=== PATIENT | female | born 1940 | race Caucasian/White ===

== ENCOUNTER 2018-03-08 21:47 | Emergency (ER) | payer MEDICARE, OTHER ==
[~2018-03-08] VITALS: Ht 160 cm; Wt 103.0 kg
--- OUTSIDE RECORDS SUMMARY | 2018-03-08 21:51 | XMS REPORT | Summary of Care ---
Author Author [facility] Outpatient Imaging [facility] Outpatient Imaging [facility] Address Unknown Phone Unavailable Encounter HQ Encntr_alias(FIN) [id number] Date(s): 10/16/17 - 10/16/17 [facility] Outpatient Imaging [facility] [address] [facility] [address] [place], [place] [address]- [phone] Discharge Disposition: Home or Self Care Attending Physician: Patria Fernández MD Vital Signs No data available for this section Problem List Condition Effective Dates Status Health Status Informant Asthma(Confirmed) Resolved Back ache(Confirmed) Resolved Bronchitis(Confirmed Resolved )1 Shortness of breath Resolved on exertion(Confirmed) Hearing Resolved deficit(Confirmed)2 Skin Resolved cancer(Confirmed)3 Sleep Resolved apnea(Confirmed) 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 Alcohol Current, Type Beer. Frequency: 1-2 times per year. Smoking Status Never smoker; Ready to change: No; Concerns about tobacco use in household: No; Exposure to Tobacco Smoke None; Cigarette Smoking Last 365 Days No; Reg Smoking Cessation Counseling No entered on: 01/17/16 Assessment and Plan No data available for this section
--- OUTSIDE RECORDS SUMMARY | 2018-03-08 21:51 | XMS REPORT | Summary of Care ---
Author Author [facility] Outpatient Imaging [facility] Outpatient Imaging [facility] Address Unknown Phone Unavailable Encounter HQ Encntr_alias(FIN) [id number] Date(s): 01/05/16 - 01/05/16 [facility] Outpatient Imaging [facility] [address] [place], [place] [address]- [phone] Discharge Disposition: Home or Self Care Attending Physician: Patria Fernández MD Admitting Physician: Patria Fernández MD Vital Signs No data available for this section Problem List No data available for this section Allergies, Adverse Reactions, Alerts No data available for this section Medications No data available for this section Results No data available for this section Immunizations No data available for this section Procedures No data available for this section Social History No data available for this section Assessment and Plan No data available for this section
--- OUTSIDE RECORDS SUMMARY | 2018-03-08 21:51 | XMS REPORT | Summary of Care ---
Author Author [facility] Organization [facility] Address Unknown Phone Unavailable Encounter CLAUDIA He(BLAKE) [id number] Date(s): 01/18/16 - 01/18/16 [facility] [address] [place] [address]- Discharge Disposition: Home or Self Care Attending Physician: Patria Fernández MD Referring Physician: Patria Fernández MD Vital Signs 1 2 3 Most recent to oldest [Reference Range]: 160.02 cm (01/17/16 2:21 PM) Height 128/78 mmHg (01/18/16 9:45 AM) 133/77 mmHg (01/18/16 9:30 AM) 141/75 mmHg *HI* (01/18/16 9:15 AM) Blood Pressure [90-140/60-90 mmHg] 13 BRMIN *LOW* (01/18/16 9:45 AM) 15 BRMIN (01/18/16 9:30 AM) 13 BRMIN *LOW* (01/18/16 9:15 AM) Respiratory Rate [14-20 BRMIN] 86 bpm (01/18/16 6:15 AM) 83 bpm (01/17/16 2:54 PM) Peripheral Pulse Rate [60-100 bpm] 105.909 kg (01/17/16 2:21 PM) Weight 41.36 m2 (01/17/16 2:21 PM) Body Mass Index Problem List Condition Effective Dates Status Health Status Informant Asthma(Confirmed) Resolved Back ache(Confirmed) Resolved Bronchitis(Confirmed Resolved )1 Shortness of breath Resolved on exertion(Confirmed) Hearing Resolved deficit(Confirmed)2 Skin Resolved cancer(Confirmed)3 Sleep Resolved apnea(Confirmed) 02855 2BILATERAL HEARING AIDS 3NOSE 1979 Allergies, Adverse Reactions, Alerts Substance Reaction Severity Status NKDA Active Medications ANES acetaminophen 1,000 mg, 2 tab, Route: PO, Drug form: TAB, ONCE, Dosing Weight 105.909, kg, PRN Pain Score 1-3, Start date: 01/18/16 7:16:00 CDT, Duration: 1 doses or times, S top date: Limited # of times Notes: Max acetaminophen 4000 mg/day (4 gm/day). (Same as: Tylenol Extra Streng th) Start Date: 01/18/16 Stop Date: 01/18/16 Status: Discontinued ANES fentaNYL 25 microgram, 0.5 mL, Route: IVP, Drug form: INJ, Q5Min, Dosing Weight 105.909, kg, PRN Pain Score 4-6, Start date: 01/18/16 7:16:00 CDT, Duration: 4 doses or t imes, Stop date: Limited # of times Notes: (Same as: Sublimaze) Preservative free. Start Date: 01/18/16 Stop Date: 01/18/16 Status: Discontinued ANES flumazenil 0.2 mg, 2 mL, Route: IVP, Drug form: INJ, PRN, Dosing Weight 105.909, kg, PRN Be nzodiazepine Reversal, Initial dose, Start date: 01/18/16 7:16:00 CDT, Duration: 30 day, Stop date: 02/17/16 7:15:00 CDT Notes: (Same as: Romazicon) Start Date: 01/18/16 Stop Date: 01/18/16 Status: Discontinued ANES morphine Sulfate 2 mg, 1 mL, Route: IVP, Drug form: INJ, Q5Min, Dosing Weight 105.909, kg, PRN Pa in Score 4-6, Start date: 01/18/16 7:16:00 CDT, Duration: 5 doses or times, Stop date: Limited # of times Notes: (Same as:MORPhine Sulfate) Start Date: 01/18/16 Stop Date: 01/18/16 Status: Discontinued ANES naloxone 0.4 mg, 1 mL, Route: IVP, Drug form: INJ, Q2MIN, Dosing Weight 105.909, kg, PRN Narcotic Reversal, Start date: 01/18/16 7:16:00 CDT, Duration: 8 doses or times, Stop date: Limited # of times Notes: Same as Narcan Start Date: 01/18/16 Stop Date: 01/18/16 Status: Discontinued ANES ondansetron 4 mg, 2 mL, Route: IVP, Drug form: INJ, ONCE, Dosing Weight 105.909, kg, PRN Robert sea & Vomiting, Start date: 01/18/16 7:16:00 CDT Notes: (Same as: Singh) MEDICATION WASTE Product Size: 4 mgProduct Was donavan: ___ mg Start Date: 01/18/16 Stop Date: 01/18/16 Status: Discontinued calcium-vitamin D 250 mg-200 intl units oral tablet 1 tab, PO, BID, 0 Refill(s) Start Date: 01/17/16 Status: Ordered glucosamine 750 mg oral tablet 1,500 mg=2 tab, PO, BID, 0 Refill(s) Start Date: 01/17/16 Status: Ordered Lactated Ringers 1,000 mL 1,000 mL, Rate: 125 ml/hr, Infuse over: 8 hr, Route: IV, Dosing Weight 105.909 k g, Total Volume: 1,000, Start date: 01/18/16 7:16:00 CDT, Duration: 30 day, Stop date: 02/17/16 7:15:00 CDT Start Date: 01/18/16 Stop Date: 01/18/16 Status: Discontinued Lactated Ringers 1,000 mL 1,000 mL, Rate: 25 ml/hr, Infuse over: 40 hr, Route: IV, Dosing Weight 105.909 k g, Total Volume: 1,000, Start date: 01/18/16 7:16:00 CDT, Duration: 30 day, Stop date: 02/17/16 7:15:00 CDT Start Date: 01/18/16 Stop Date: 01/18/16 Status: Discontinued Mucinex Max Strength 1200 mg oral tablet, extended release 1,200 mg=1 tab, PO, Daily, 0 Refill(s) Start Date: 01/17/16 Status: Ordered omeprazole 40 mg oral delayed release capsule 40 mg=1 cap, PO, Daily, 0 Refill(s) Start Date: 01/17/16 Status: Ordered Symbicort 160/4.5 inhalation aerosol with adapter 2 puff, INHALATION, BID, 0 Refill(s) Start Date: 01/17/16 Status: Ordered Ultracet oral tablet 1 tab, PO, Q8H, PRN Pain, X 10 day, # 20 tab, 0 Refill(s) Start Date: 01/18/16 Stop Date: 01/28/16 Status: Ordered Ventolin HFA 90 mcg/inh inhalation aerosol with adapter 2 puff, INHALATION, PRN, 0 Refill(s) Start Date: 01/17/16 Status: Ordered Vitamin D3 2000 intl units oral tablet 2,000 IntlUnit=1 tab, PO, Daily, 0 Refill(s) Start Date: 01/17/16 Status: Ordered Results ELECTROLYTES Most recent to 1 oldest [Reference Range]: Sodium Lvl [135-145 145 mEq/L mEq/L] (01/17/16 2:24 PM) Potassium Lvl 4.5 mEq/L [3.5-5.1 mEq/L] (01/17/16 2:24 PM) Chloride Lvl [95-109 106 mEq/L mEq/L] (01/17/16 2:24 PM) CO2 [24-32 mEq/L] 31 mEq/L (01/17/16 2:24 PM) AGAP [10.0-20.0 12.5 mEq/L mEq/L] (01/17/16 2:24 PM) CHEM PANEL Most recent to 1 oldest [Reference Range]: Creatinine Lvl 1.10 mg/dL [0.50-1.40 mg/dL] (01/17/16 2:24 PM) eGFR 50 mL/min/1.73m2 1 *NA* (01/17/16 2:24 PM) BUN [7-22 mg/dL] 16 mg/dL (01/17/16 2:24 PM) Glucose Lvl [70-99 92 mg/dL mg/dL] (01/17/16 2:24 PM) Calcium Lvl 9.7 mg/dL [8.5-10.5 mg/dL] (01/17/16 2:24 PM) 1Result Comment: The eGFR is calculated using the CKD-EPI formula. In most young, healthy individuals the eGFR will be >90 mL/min/1.73m2. The eGFR declines with age. An eGFR of 60-89 may be normal in some populations, particularly the elderly, for whom the CKD-EPI formula has not been extensively validated. Use of the eGFR is not recommended in the following populations: Individuals with unstable creatinine concentrations, including patients and those with serious co-morbid conditions. Patients with extremes in muscle mass or diet. The data above are obtained from the National Kidney Disease Education Program ( NKDEP) which additionally recommends that when the eGFR is used in patients with extremes of body mass index for purposes of drug dosing, the eGFR should be mul tiplied by the estimated BMI. HEMATOLOGY Most recent to 1 oldest [Reference Range]: WBC [3.7-10.4 K/CMM] 6.6 K/CMM (01/17/16 2:24 PM) RBC [4.20-5.40 4.99 M/CMM M/CMM] (01/17/16 2:24 PM) Hgb [12.0-16.0 g/dL] 14.5 g/dL (01/17/16 2:24 PM) Hct [36.0-48.0 %] 44.3 % (01/17/16 2:24 PM) MCV [80.0-98.0 fL] 88.8 fL (01/17/16 2:24 PM) MCH [27.0-31.0 pg] 29.2 pg (01/17/16 2:24 PM) MCHC [32.0-36.0 32.9 g/dL g/dL] (01/17/16 2:24 PM) RDW [11.5-14.5 %] 13.5 % (01/17/16 2:24 PM) Platelet [133-450 260 K/CMM K/CMM] (01/17/16 2:24 PM) MPV [7.4-10.4 fL] 7.2 fL *LOW* (01/17/16 2:24 PM) Segs [45.0-75.0 %] 53.4 % (01/17/16 2:24 PM) Lymphocytes 37.8 % [20.0-40.0 %] (01/17/16 2:24 PM) Monocytes [2.0-12.0 7.3 % %] (01/17/16 2:24 PM) Eosinophils [0.0-4.0 1.0 % %] (01/17/16 2:24 PM) Basophils [0.0-1.0 0.5 % %] (01/17/16 2:24 PM) Segs-Bands # 3.5 K/CMM [1.5-8.1 K/CMM] (01/17/16 2:24 PM) Lymphocytes # 2.5 K/CMM [1.0-5.5 K/CMM] (01/17/16 2:24 PM) Monocytes # [0.0-0.8 0.5 K/CMM K/CMM] (01/17/16 2:24 PM) Eosinophils # 0.1 K/CMM [0.0-0.5 K/CMM] (01/17/16 2:24 PM) Basophils # [0.0-0.2 0.0 K/CMM K/CMM] (01/17/16 2:24 PM) TUMOR MARKERS Most recent to 1 oldest [Reference Range]: CEA [0.0-3.0 ng/mL] 11.2 ng/mL *HI* (01/17/16 2:24 PM) CA 27 29 [0-40 43 unit/mL unit/mL] *HI* (01/17/16 2:24 PM) Immunizations No data available for this section Procedures Procedure Date Related Diagnosis Body Site Breast biopsy and related procedures1 Procedure2 Tonsillectomy Tubal sterilization 85527 RIGHT 2EXCISION MOLE NOSE Social History Social History Type Response Substance Abuse Use: None. Alcohol Current, Type Beer. Frequency: 1-2 times per year. Smoking Status Never smoker; Ready to change: No; Concerns about tobacco use in household: No; Exposure to Tobacco Smoke None; Cigarette Smoking Last 365 Days No; Reg Smoking Cessation Counseling No Assessment and Plan Extracted from: Title: Clinical Document Author: Patria Fernández MD Date: 01/18/16 Attending: Patria Fernández MDPhone: Service: Surgery Code status: None Specified=FULL CODE Reason for Admission: BREAST CANCER Working DRG: None Documented Isolation: None Documented Consulting Physicians: (none on file) DATE OF PROCEDURE: 01-18-2016 PRE-OP DIAGNOSIS: Right Breast Cancer POST-OPERATIVE DIAGNOSIS: Same PROCEDURE PERFORMED: 1. Right Partial Mastectomy w/ pre-op needle loc 2. OncoPlastic Reconstruction with Tissue Rearrangement 3. Insertion BioZorb marker ANESTHESIA: General-LMA ; Dr. Oneill INDICATIONS FOR PROCEDURE: This is a 75 yo female with palpable mass and abnormal right breast MMG/US. 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 Clinically she is stage I (T1N0). She now presents for breast conserving surgery. PROCEDURE: The patient was taken to the operating room in stable condition and placed on the operating table in the supine position. After general anesthesia was adequate, the right breast and axilla were prepped and draped in sterile fashion. A curvilinear incision was made in the low axilla and dissection taken down through the axillary fascia. The neoprobe was used and a single sentinel node was identified. This circumferentially dissected with the harmonic scalpel and sent to pathology. There was no other visible or palpble abnormality within the axilla. The long thoracic and thoracodorsal nerve bundles were preserved. The wound was irrigated with sterile solution and injected with local anesthetic. Hemostatis was achieved with electrocautery. Wound edges were reapproximated with interrupted vicryl sutures followed by a monocryl subcuticular stitch. Attention then turned to the breast where a elliptical curvilinear incision was made in the 6 o'clock position nabove the palpable mass to include the closely adherent skin. Dissection was taken down through the subcutaneous tissues to the breast parenchyma. The tissue was divided and a circumferential piece of breast tissue was taken around the tumor. Sutures were placed to carroll for specimen orientation. Manual palpation felt that the inferior margin would be close so an additional inferior margin was taken. The wound was irrigated with sterile solution and injected with local anesthetic. Hemostasis was achieved with electrocautery. There was a fairly large defect caused by the removal of the breast tissue, which was measured to be greater than 30 sq. cm. with the tissue measuring 5.5 x 4 x 3 cm in size. It was elected to repair the surgical defect by using an oncoplastic tissue advancement procedure to achieve a breast reconstruction with local tissue flaps. The breast tissue under the skin and subcutaneous tissue was mobilize to create a superior flap. A similar flap was mobilized inferiorly. The BioZorb sizer instrument was used to properly size for the device. A 2 x 3 cm size BioZorb implant was oriented and placed into the cavity. This was secured in place with vicryl sutures. The tissue flaps were then sewn over the BioZorb and the skin checked for adequate mobilization without any traction and felt to be adequate. The wound edges were then reapproximated with interrupted vicryl sutures followed by a monocryl subcuticular stitch. Dermabond glue and sterile dressing was applied. The patient tolerated the procedure well, was awakened from general anesthesia, extubated and taken to the recovery room in stable condition.
--- OUTSIDE RECORDS SUMMARY | 2018-03-08 21:51 | XMS REPORT | Summary of Care ---
Author Author [facility] Outpatient Imaging [facility] Outpatient Imaging [facility] Address Unknown Phone Unavailable Encounter HQ Encntr_alias(FIN) [id number] Date(s): 10/15/16 - 10/15/16 [facility] Outpatient Imaging [facility] [address] [place], [place] [address]- [phone] Discharge Disposition: Home or Self Care Attending Physician: Patria Fernández MD Vital Signs No data available for this section Problem List Condition Effective Dates Status Health Status Informant Asthma(Confirmed) Resolved Back ache(Confirmed) Resolved Bronchitis(Confirmed Resolved )1 Shortness of breath Resolved on exertion(Confirmed) Hearing Resolved deficit(Confirmed)2 Skin Resolved cancer(Confirmed)3 Sleep Resolved apnea(Confirmed) 93864 2BILATERAL HEARING AIDS 3NOSE 1980 Allergies, Adverse Reactions, Alerts Substance Reaction Severity Status NKDA Active Medications No data available for this section Results No data available for this section Immunizations No data available for this section Procedures Procedure Date Related Diagnosis Body Site Breast biopsy and related procedures1 Procedure2 Tonsillectomy Tubal sterilization 02974 RIGHT 2EXCISION MOLE NOSE Social History Social History Type Response Substance Abuse Use: None. Alcohol Current, Type Beer. Frequency: 1-2 times per year. Smoking Status Never smoker; Ready to change: No; Concerns about tobacco use in household: No; Exposure to Tobacco Smoke None; Cigarette Smoking Last 365 Days No; Reg Smoking Cessation Counseling No Assessment and Plan No data available for this section
--- OUTSIDE RECORDS SUMMARY | 2018-03-08 21:51 | XMS REPORT | Continuity of Care Document ---
Author Author [facility] Interface Address Unknown Phone Unavailable Problems Problem Status Onset Date Classification Date Reported Comments Source BREAST CANCER Active 01/12/2016 [facility] R92.8 - OTH ABN AND INCONCLUSIVE FINDI Active 01/04/2016 [facility] Back ache Resolved Problem 10/19/2017 [facility] Bronchitis<sup>1</sup> Resolved Problem 10/19/20172011 [facility] Shortness of breath on exertion Resolved Problem 10/19/2017 [facility] Hearing deficit<sup>2</sup> Resolved Problem 10/19/2017 BILATERAL HEARING AIDS [facility] Skin cancer<sup>3</sup> Resolved Problem 10/19/2017 [facility] Sleep apnea Resolved Problem 10/19/2017 [facility] MALIGNANT NEOPLASM OF UNSP SITE OF RIGHT Active [facility] ABNORMAL MAMMOGRAM Active [facility] OTH ABN AND INCONCLUSIVE FINDINGS ON DX Active [facility] Medications Medication Details Route Status Patient Instructions Ordering Provider Order Date Source Acetaminophen 325 MG / tramadol hydrochloride 37.5 MG Oral Tablet [Ultracet] 1 tab, PO, Q8H, PRN Pain, X 10 day, # 20 tab, 0 Refill(s) Active 01/18/2016 [facility] Ondansetron 4 mg, 2 mL, Route: IVP, Drug form: INJ, ONCE, Dosing Weight 105.909, kg, PRN Nausea & Vomiting, Start date: 01/18/16 7:16:00 CDTNotes: (Same as: Singh) MEDICATION WASTE Product Size: 4 mg Product Wasted: ___ mg Inactive 01/18/2016 [facility] Naloxone 0.4 mg, 1 mL, Route: IVP, Drug form: INJ, Q2MIN, Dosing Weight 105.909, kg, PRN Narcotic Reversal, Start date: 01/18/16 7:16:00 CDT, Duration: 8 doses or times, Stop date: Limited # of timesNotes: Same as Narcan Inactive 01/18/2016 [facility] Flumazenil 0.2 mg, 2 mL, Route: IVP, Drug form: INJ, PRN, Dosing Weight 105.909, kg, PRN Benzodiazepine Reversal, Initial dose, Start date: 01/18/16 7:16:00 CDT, Duration: 30 day, Stop date: 02/17/16 7:15:00 CD TNotes: (Same as: Romazicon) Inactive 01/18/2016 [facility] Fentanyl 25 microgram, 0.5 mL, Route: IVP, Drug form: INJ, Q5Min, Dosing Weight 105.909, kg, PRN Pain Score 4-6, Start date: 01/18/16 7:16:00 CDT, Duration: 4 doses or times, Stop date: Limited # of timesNotes: (Same as: Sublimaze) Preservative free. Inactive 01/18/2016 [facility] Morphine 2 mg, 1 mL, Route: IVP, Drug form: INJ, Q5Min, Dosing Weight 105.909, kg, PRN Pain Score 4-6, Start date: 01/18/16 7:16:00 CDT, Duration: 5 doses or times, Stop date: Limited # of timesNotes: (Same a s:MORPhine Sulfate) Inactive 01/18/2016 [facility] Acetaminophen 1,000 mg, 2 tab, Route: PO, Drug form: TAB, ONCE, Dosing Weight 105.909, kg, PRN Pain Score 1-3, Start date: 01/18/16 7:16:00 CDT, Duration: 1 doses or times, Stop date: Limited # of timesNotes: Max acetaminophen 4000 mg/day (4 gm/day). (Same as: Tylenol Extra Strength) Inactive 01/18/2016 [facility] Calcium Chloride 0.0014 MEQ/ML / Potassium Chloride 0.004 MEQ/ML / Sodium Chloride 0.103 MEQ/ML / Sodium Lactate 0.028 MEQ/ML Injectable Solution 1,000 mL, Rate: 125 ml/hr, Infuse over: 8 hr, Route: IV, Dosing Weight 105.909 kg, Total Volume: 1,000, Start date: 01/18/16 7:16:00 CDT, Duration: 30 day, Stop date: 02/17/16 7:15:00 CDT Inactive 01/18/2016 [facility] 12 HR Guaifenesin 1200 MG Extended Release Tablet [Mucinex] 1,200 mg=1 tab, PO, Daily, 0 Refill(s) Active 01/17/2016 [facility] omeprazole 40 mg oral delayed release capsule 40 mg=1 cap, PO, Daily, 0 Refill(s) Active 01/17/2016 [facility] Ventolin HFA 90 mcg/inh inhalation aerosol with adapter 2 puff, INHALATION, PRN, 0 Refill(s) Active 01/17/2016 [facility] Symbicort 160/4.5 inhalation aerosol with adapter 2 puff, INHALATION, BID, 0 Refill(s) Active 01/17/2016 [facility] Vitamin D3 2000 intl units oral tablet 2,000 IntlUnit=1 tab, PO, Daily, 0 Refill(s) Active 01/17/2016 [facility] calcium-vitamin D 250 mg-200 intl units oral tablet 1 tab, PO, BID, 0 Refill(s) Active 01/17/2016 [facility] glucosamine 750 mg oral tablet 1,500 mg=2 tab, PO, BID, 0 Refill(s) Active 01/17/2016 [facility] Allergies, Adverse Reactions, Alerts Substance Category Reaction Severity Reaction type Status Date Reported Comments Source Immunizations Immunization Date Given Site Status Last Updated Comments Source Results Order Name Results Value Reference Range Date Interpretation Comments Source Breast Mammo Scrn MARIVEL w itz incl CAD MA Breast Mammo Scrn MARIVEL w itz incl CAD MA BILATERAL DIGITAL SCREENING MAMMOGRAM 3D/2D WITH CAD: 10/16/2017 CLINICAL: /Z12.31. Current study was evaluated with a Computer Aided Detection (CAD) system. COMPARISON:Comparison is made to exams dated: 10/15/2016 mammogram, 01/08/2016 mammogram - [facility], 11/16/2015 mammogram, and 10/19/2015 mammogram - [facility]. TECHNIQUE: Digital Breast Tomosynthesis was performed and utilized for Interpretation. Current study was also evaluated with a Computer Aided Detection (CAD) system. FINDINGS: The tissue of both breasts is almost entirely fat. There are post operative findings in the right breast. No significant masses, calcifications, or other findings are seen in either breast. There has been no significant interval change. IMPRESSION: BENIGN RECOMMENDATION:There is no mammographic evidence of malignancy. A 1 year screening mammogram is recommended.(10/17/2018) This exam was interpreted at [id number] at [facility]. Professional services are provided by the [facility]. Gideon Hawthorne M.D. ks/penrad:10/16/2017 14:07:39 Business Process Specialist(s): Vidya Mitchell [facility] letter sent: BI-RADS 1/2 Mammogram BI-RADS: 2 Benign 10/16/2017 - - Read by: Gideon Hawthorne MD Dictated Date/time: 10/16/17 14:07 Electronically Signed by: Gideon Hawthorne MD 10/16/17 14:07 FINAL REPORT [facility] Breast Mammo Diag MARIVEL w itz incl CAD MA Breast Mammo Diag MARIVEL w itz incl CAD MA - BREAST MAMMO DIAG MARIVEL W ITZ INCL CAD MA BILATERAL DIGITAL DIAGNOSTIC MAMMOGRAM 3D/2D WITH CAD: 10/15/2016 CLINICAL: N60.11 Diffuse Cystic Mastopathy Of Right Breast N60.12 Diffuse Cystic Mastopathy Of Left Breast/N60.11 Diffuse Cystic Mastopathy Of Right Breast. 2D digital mammographic images and 3D digital tomosynthesis images were obtained in the CC and MLO projections. Current study was evaluated with a Computer Aided Detection (CAD) system. Comparison is made to exams dated: 01/08/2016 mammogram - [facility], 11/16/2015 mammogram, 10/19/2015 mammogram, 06/18/2012 mammogram and 08/31/2009 mammogram - [facility]. There are scattered fibroglandular densities in both breasts. Changes from breast conservation therapy are identified in the right breast without mammographic evidence of tumor recurrence. There are post-surgical changes in the left breast. The pain is intermittent in nature for over 6 months. No significant masses, calcifications, or other findings are seen in either breast. IMPRESSION: BENIGN There is no abnormality seen in the right breast to correspond with the diffuse pain in the lower outer quadrant, however clinical correlation and clinical followup are recommended. There is no mammographic evidence of malignancy. A 1 year screening mammogram is recommended. Professional services are provided by the [facility] of Diagnostic Imaging. Dany Perez M.D., jp/jen:10/15/2016 13:16:51 Business Process Specialist: Ling MICHELLE (R)), [facility] This exam was dictated and interpreted by [id number] at [facility] Breast [place]. letter sent: Bilateral Benign Mammogram BI-RADS: 2 Benign 10/15/2016 - - Read by: Dany Perez MD Dictated Date/time: 10/15/16 13:16 Electronically Signed by: Dany Perez MD 10/15/16 13:16 FINAL REPORT [facility] CHEM PANEL eGFR 50 mL/min/1.73m2 01/17/2016 Result Comment: The eGFR is calculated using the [...] from the National Kidney Disease Education Program (NKDEP) which additionally recommends that when the eGFR is used in patients with extremes of body mass index for purposes of drug dosing, the eGFR should be multiplied by the estimated BMI. [facility] CHEM PANEL Glucose Lvl 92 mg/dL 70 - 99 01/17/2016 [facility] CHEM PANEL BUN 16 mg/dL 7 - 22 01/17/2016 [facility] CHEM PANEL Creatinine Lvl 1.10 mg/dL 0.50 - 1.40 01/17/2016 [facility] CHEM PANEL Potassium Lvl 4.5 meq/L 3.5 - 5.1 01/17/2016 [facility] CHEM PANEL Chloride Lvl 106 meq/L 95 - 109 01/17/2016 [facility] CHEM PANEL Sodium Lvl 145 meq/L 135 - 145 01/17/2016 [facility] CHEM PANEL CO2 31 meq/L 24 - 32 01/17/2016 [facility] CHEM PANEL Calcium Lvl 9.7 mg/dL 8.5 - 10.5 01/17/2016 [facility] CHEM PANEL AGAP 12.5 meq/L 10.0 - 20.0 01/17/2016 [facility] Monocytes 7.3 % 2.0 - 12.0 01/17/2016 [facility] HEMATOLOGY Lymphocytes 37.8 % 20.0 - 40.0 01/17/2016 [facility] HEMATOLOGY Segs 53.4 % 45.0 - 75.0 01/17/2016 [facility] Lymphocytes # 2.5 K/CMM 1.0 - 5.5 01/17/2016 [facility] HEMATOLOGY Basophils # 0.0 K/CMM 0.0 - 0.2 01/17/2016 [facility] HEMATOLOGY Eosinophils # 0.1 K/CMM 0.0 - 0.5 01/17/2016 [facility] Basophils 0.5 % 0.0 - 1.0 01/17/2016 [facility] Eosinophils 1.0 % 0.0 - 4.0 01/17/2016 [facility] Monocytes # 0.5 K/CMM 0.0 - 0.8 01/17/2016 [facility] Segs-Bands # 3.5 K/CMM 1.5 - 8.1 01/17/2016 [facility] Hct 44.3 % 36.0 - 48.0 01/17/2016 [facility] WBC 6.6 K/CMM 3.7 - 10.4 01/17/2016 [facility] RBC 4.99 M/CMM 4.20 - 5.40 01/17/2016 [facility] Hgb 14.5 g/dL 12.0 - 16.0 01/17/2016 [facility] MCH 29.2 pg 27.0 - 31.0 01/17/2016 [facility] MCV 88.8 fL 80.0 - 98.0 01/17/2016 [facility] MCHC 32.9 g/dL 32.0 - 36.0 01/17/2016 [facility] Platelet 260 K/CMM 133 - 450 01/17/2016 [facility] MPV 7.2 fL 7.4 - 10.4 01/17/2016 [facility] RDW 13.5 % 11.5 - 14.5 01/17/2016 [facility] TUMOR MARKERS CEA 11.2 ng/mL 0.0 - 3.0 01/17/2016 [facility] TUMOR MARKERS CA 27 29 43 unit/mL 0 - 40 01/17/2016 [facility] Chest 2 views DX Chest 2 views DX Chest 2 views DX 01/17/2016 2:22 PM CDT Ordering Physician: Patria Fernández MD CLINICAL HISTORY: Malignant neoplasm of unspecified ssite of right female breast; TECHNIQUE: PA and lateral upright views of the chest were obtained. COMPARISON: December 2006 FINDINGS: Lungs are hyperinflated, but clear. No pleural effusion or pneumothorax is present. Cardiomediastinal silhouette is normal. Bones are normal. IMPRESSION: No acute abnormality of the chest. Mild pulmonary emphysematous changes. SL: [id number] 01/17/2016 - - Read by: Christiano Torres MD Dictated Date/time: 01/17/16 17:23 Electronically Signed by: Christiano Torres MD 01/17/16 17:24 FINAL REPORT [facility] Sentinal Node injection NM Sentinal Node injection NM Patient Name: CINTIA HUMMEL : 1940; Age: 75 years y/o Female MR: [id number] Study: Right Breast Sentinal Node injection NM 01/17/2016 2:29 PM CDT Ordering Physician: Patria Fernández MD Clinical Indication: Malignant neoplasm of right female breast; Comparison: 01/08/2016 right breast ultrasound guided biopsy Utilizing sterile technique, 3 mCi of technetium 99m filtered sulfur colloid was injected into the outer lower quadrant of the right breast in 4 divided doses. SL: [id number] 01/17/2016 - - Read by: Yves Huerta MD Dictated Date/time: 01/17/16 17:26 Electronically Signed by: Yves Huerta MD 01/17/16 17:27 FINAL REPORT [facility] Breast BX Uni w Clip Primary Side US Breast BX Uni w Clip Primary Side US - BREAST BX UNI W CLIP PRIMARY SIDE US/R ULTRASOUND GUIDED BIOPSY RIGHT BREAST WITH MARKING DEVICE INSERTED AND POST DIGITAL MAMMOGRAPHIC IMAGING- POST-PROCEDURE IMAGING FOR MARKER PLACEMENT: 01/08/2016 CLINICAL: R92.8 Abnormal Mammogram Right Breast. PATIENT CONSENT: I discussed the risks, benefits and alternatives for the procedure with the patient. Patient acknowledged understanding and informed written consent was obtained. A time out was performed to confirm patient identification and the location of the lesion. Correlation is made to exams dated: 01/08/2016 ultrasound, 01/08/2016 mammogram - [facility], 11/16/2015 ultrasound, 11/16/2015 mammogram, 10/19/2015 mammogram and 06/18/2012 mammogram - [facility]. An ultrasound guided biopsy using real-time ultrasound was performed for the concerning 1.6 cm x 1.4 cm x 1.5 cm mass located in the right breast at 7 o'clock anterior depth 4 cm from the nipple. This was described on the previous ultrasound report. The skin was prepped in the usual manner. Local anesthetic was administered to the access site. A skin greta was made in the breast. The abnormality was approached from the lateral aspect. A 16 gauge biopsy needle was placed adjacent to the abnormality under ultrasound guidance. Once the needle was documented to be in the correct location, four specimens were obtained using a Astech biopsy device. A clip was inserted into the biopsy cavity. A sterile dressing was applied to the access site. Post procedure digital mammographic imaging demonstrates the clip at the targeted area. The specimens were sent to the laboratory for pathological analysis. IMPRESSION: ULTRASOUND GUIDED BIOPSY MALIGNANT Ultrasound guided biopsy of the 1.6 cm x 1.4 cm x 1.5 cm mass in the right breast at 7 o'clock anterior depth 4 cm from the nipple was successful with no apparent post procedure complications. Pathology indicates malignant invasive ductal carcinoma (ID). Pathology results are concordant with imaging findings. A surgical consult and a chemo oncology consultation are recommended. Beverly Washington M.D., rn,ms/penzohaib:01/10/2016 13:06:38 Business Process Specialist: Ava Ramachandran, [facility] This exam was dictated and interpreted by [address] [place] [address]. letter sent: Surgical Consult post Biopsy 01/08/2016 - - Read by: Beverly Luis MD Dictated Date/time: 01/10/16 13:06 Electronically Signed by: Beverly Luis MD 01/10/16 13:06 FINAL REPORT [facility] Breast Complete Uni US Breast Complete Uni US - BREAST COMPLETE UNI US/R ULTRASOUND OF RIGHT BREAST: 01/08/2016 CLINICAL: R92.8 Abnormal Mammogram. Comparison is made to exams dated: 11/16/2015 mammogram, 10/19/2015 mammogram, 06/18/2012 mammogram, 08/31/2009 mammogram - [facility] and 01/08/2016 mammogram - [facility]. Real-time ultrasound of all four quadrants and retroareolar region of the right breast including the right axillary, infraclavicular, and internal mammary fantasma basins was performed by the technologist and Dr. Luis. There is a 1.6 cm x 1.4 cm x 1.5 cm irregular mass in the right breast at 7 o'clock anterior depth 4 cm from the nipple. This irregular mass is of mixed echogenicity with areas of shadowing corresponding to areas of mammographic calcification. Color flow imaging demonstrates that there is vascularity present. There is no suspicious adenopathy in the right regional fantasma basins. IMPRESSION: HIGHLY SUGGESTIVE OF MALIGNANCY - FOLLOW-UP RECOMMENDED 1. The 1.6 cm 7:00 right breast mass containing calcifications resembles carcinoma and is highly suggestive of malignancy. An ultrasound guided biopsy is recommended for histopathologic confirmation. 2. No suspicious adenopathy in the right regional fantasma basins. Ultrasound-guided biopsy is to immediately follow; please see the accompanying report for further details. Beverly Luis M.D. rn/:01/08/2016 14:35:19 Business Process Specialist: Ava Ramachandran, [facility] This exam was dictated and interpreted by [address] [place] [address]. letter sent: Biopsy Ultrasound BI-RADS: 5 Highly suggestive of malignancy 01/08/2016 - - Read by: Beverly Luis MD Dictated Date/time: 01/08/16 14:35 Electronically Signed by: Beverly Luis MD 01/08/16 14:35 FINAL REPORT [facility] DX Uni MA Digital Mammo DX Uni MA - DIGITAL MAMMO DX UNI MA/R UNILATERAL RIGHT DIGITAL DIAGNOSTIC MAMMOGRAM: 01/08/2016 CLINICAL: R92.8 Other Abnormal And Inconclusive Findings On Diagnostic Imaging Of Breast. Comparison is made to exams dated: 11/16/2015 mammogram, 10/19/2015 mammogram, 06/18/2012 mammogram, 08/31/2009 mammogram - [facility] and 01/02/2007 mammogram - [facility]. The tissue of the right breast is almost entirely fat. There is a 1.9 cm irregular high density mass with pleomorphic calcifications in the right breast at 7 o'clock anterior depth 4 cm from the nipple. No other significant masses or calcifications are seen in the breast. IMPRESSION: INCOMPLETE: NEEDS ADDITIONAL IMAGING EVALUATION The 1.9 cm mass in the right breast is indeterminate. An ultrasound including fantasma basin evaluation is recommended and is to immediately follow; please see the accompanying report for further details. Beverly Luis M.D. rn/:01/08/2016 13:23:41 Business Process Specialist: Tierra Lorenz, [facility] This exam was dictated and interpreted by [address] [place] [address]. Mammogram BI-RADS: 0 Indeterminate 01/08/2016 - - Read by: Beverly Luis MD Dictated Date/time: 01/08/16 13:23 Electronically Signed by: Beverly Luis MD 01/08/16 13:23 FINAL REPORT [facility] Vital Signs Vital Sign Value Date Comments Source Respitory Rate 13 01/18/2016 [facility] Systolic (mm Hg) 128 01/18/2016 [facility] Diastolic (mm Hg) 78 01/18/2016 [facility] Respitory Rate 15 01/18/2016 [facility] Systolic (mm Hg) 133 01/18/2016 [facility] Diastolic (mm Hg) 77 01/18/2016 [facility] Systolic (mm Hg) 141 01/18/2016 [facility] Diastolic (mm Hg) 75 01/18/2016 [facility] Respitory Rate 13 01/18/2016 [facility] Heart Rate 86 01/18/2016 [facility] Heart Rate 83 01/17/2016 [facility] BMI Calculated 41.36 01/17/2016 [facility] Weight 105.909 01/17/2016 [facility] Height 160.02 cm 01/17/2016 [facility] Encounters Location Location Details Encounter Type Encounter Number Reason For Visit Attending Provider ADM Date DC Date Status Source [facility] Outpatient Imaging [facility] Outpatient [id number] Patria Pradeep 01/05/2016 01/06/2016 [facility] Outpatient Imaging [facility] Outpatient [id number] Patria Pradeep 01/08/2016 01/09/2016 [facility] [id number] Patria Pradeep 01/18/2016 01/18/2016 [facility] Outpatient Imaging [facility] Outpatient [id number] Patria Pradeep 10/15/2016 10/16/2016 OPID [facility] Outpatient [id number] Patria Fernández [facility]/16[facility]2017 [facility] Procedures Procedure Code Date Perfomer Comments Source Breast biopsy and related procedures<sup>1</sup> [id number] 1980 RIGHT [facility] Procedure<sup>2</sup> [id number] EXCISION MOLE NOSE [facility] Tonsillectomy [id number] [facility] Tubal sterilization [id number] [facility] Breast biopsy and related procedures<sup>1</sup> [id number] 1979 RIGHT [facility] Procedure<sup>2</sup> [id number] EXCISION MOLE NOSE [facility] Tonsillectomy [id number] [facility] Tubal sterilization [id number] [facility]
--- OUTSIDE RECORDS SUMMARY | 2018-03-08 21:51 | XMS REPORT | Summary of Care ---
Author Author [facility] Outpatient Imaging [facility] Outpatient Imaging [facility] Address Unknown Phone Unavailable Encounter HQ Encntr_alias(FIN) [id number] Date(s): 01/08/16 - 01/08/16 [facility] Outpatient Imaging [facility] [address] [place], [place] [address]- [phone] Discharge Disposition: Home or Self Care Attending [...]
[2018-03-08] MEDS ORDERED: BROMFED DM COU118 ML PO (22:23)
[2018-03-08] MEDS ORDERED: XYZAL5 MG PO (22:23)
[2018-03-08] MEDS ORDERED: PROAIR HFA INH8.5 GM INH (22:32)
== END 2018-03-08 23:00 | disposition home or self-care (01) ==
LOC: FSED 21:47
DX: R50.9 Fever, unspecified (principal); R05 Cough; B34.9 Viral infection, unspecified
CPT/HCPCS: 99283

== ENCOUNTER 2018-08-05 19:36 | Emergency (ER) | payer OTHER, MEDICARE ==
[~2018-08-05] VITALS: Ht 162.6 cm; Wt 102.1 kg
[~2018-08-05 19:36] MED LIST: BROMFED DM COU118 ML PO; PROAIR HFA INH8.5 GM INH; XYZAL5 MG PO
--- OUTSIDE RECORDS SUMMARY | 2018-08-05 19:39 | XMS REPORT | Clinical Summary ---
Author Author [facility] Organization [facility] Address Unknown Phone Unavailable Care Team Providers Care Global Commodity Manager Name Role Phone Felix Valdez MD PCP Allergies No Known Allergies Medications End Date Status Medication Sig Dispensed Refills Start Date Active VENTOLIN HFA 90 INL 2 PFS PO 0 mcg/actuation inhaler Q 4 H PRF 8 WHZ Active anastrozole (ARIMIDEX) 1 0 mg chemo tablet 8 Active brompheniramine-pseudoeph TK 10 ML PO Q 0 -DM 2-30-10 mg/5 mL syrup 4 H PRN COU 8 Active FLUZONE HIGH-DOSE ADM 0.5ML IM 0 2018-, PF, 180 mcg/0.5 UTD 8 mL syringe IM injection Active levocetirizine (XYZAL) 5 TK 1 T PO QD 0 MG tablet 8 Active meloxicam (MOBIC) 7.5 mg 0 tablet 8 Active PREVNAR 13, PF, 0.5 mL ADM 0.5ML IM 0 vaccine UTD 8 Active traMADol (ULTRAM) 50 mg 0 tablet 8 Active SHINGRIX, PF, 50 mcg/0.5 ADM 0.5ML IM 0 mL suspension for UTD 8 reconstitution IM injection Active Problems Problem Noted Date 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 Wrist tendonitis after 08/04/2017 Results * Hand/Upper Extremity Injection/Arthrocentesis (03/17/2018 10:30 AM [employer] WORK[employer]) Narrative Performed At Gary Triana MD 03/17/2018 11:41 AM Hand/Upper Extremity Injection/Arthrocentesis Date/Time: 03/17/2018 11:21 AM Consent given by: patient Supporting Documentation Indications: pain Procedure Details Condition: de Quervain's tenosynovitis Site: R extensor compartment 1 Right side: Needle size: 25 G Approach: lateral Patient tolerance: patient tolerated the procedure well with no immediate complications Right Extensor Compartment 1 Medications administered: 1 mL lidocaine 10 mg/mL (1 %); 6 mg betamethasone acetate & sodium phosphate 6 mg/mL after 08/04/2017 Insurance Payer Benefit Subscriber ID Type Phone Address Plan / Group AETNA AETNA xxxxxxxx HMO HMO,POS,EP O, MC/EC Advance Directives Patient has advance care planning documents on file. For more information, aki e contact: Cristofer Schwarz [id number] [place] [address]
[2018-08-05] MEDS ORDERED: ALBUTEROL/IPRATROPIUM 3 ML NEB NEB ONE (20:15)
[2018-08-05] MEDS ORDERED: PREDNISONE 20 MG TAB PO ONE (20:15)
[2018-08-05] MEDS ORDERED: PROAIR HFA INH8.5 GM INH (21:23)
[2018-08-05] MEDS ORDERED: DOXYCYCLINE HY100 MG PO (21:25)
[2018-08-05] MEDS ORDERED: PREDNISONE20 MG PO (21:26)
[2018-08-05] MEDS ORDERED: CHERATUSSIN AC118 ML PO (21:28)
[2018-08-05] MEDS ORDERED: DOXYCYCLINE MO100 MG PO (21:33)
== END 2018-08-05 22:00 | disposition home or self-care (01) ==
LOC: FSED 19:36
DX: J45.31 Mild persistent asthma with (acute) exacerbation (principal); J20.9 Acute bronchitis, unspecified; K21.9 Gastro-esophageal reflux disease without esophagitis
CPT/HCPCS: 99283; J7512